=== PATIENT | female | born 1970 | race Caucasian/White ===

== ENCOUNTER 2022-12-20 10:31 | Emergency (ER) | payer BC ==
[~2022-12-20] VITALS: Ht 170.2 cm; Wt 59.0 kg
--- NOTE | 2022-12-20 10:35 | NUR ---
RECEIVED PT 52 YRS FEMALE WALKING IN FROM HOME C/O RT FLANK PAIN FOR SINCE 8 AM TODAY AWAKE AND ALERT PAIN 03/05
--- NOTE | 2022-12-20 10:40 | NUR ---
UA SET TO LAB
--- NOTE | 2022-12-20 10:45 | NUR ---
BLOOD DROW BY LAB TACH
--- NOTE | 2022-12-20 10:50 | NUR ---
INSERTED ANGO CATHETER G 20 ON LT AC PATENT WILL
[2022-12-20] MEDS ORDERED: ONDANSETRON HCL/PF 4 MG/2 ML VIAL ONE (10:55)
[2022-12-20] MEDS ORDERED: KETOROLAC TROMETHAMINE INJ 30 MG/ML VIAL ONE (10:56)
[2022-12-20] MEDS ORDERED: MORPHINE SULFATE INJ 4 MG/ML DISP.SYRIN ONE (10:56)
[2022-12-20] MEDS ORDERED: KETOROLAC TROMETHAMINE INJ 30 MG/ML VIAL IV ONE (11:00)
[2022-12-20] MEDS ORDERED: MORPHINE SULFATE INJ 2 MG/ML DISP.SYRIN IV ONE (11:00)
[2022-12-20] MEDS ORDERED: ONDANSETRON HCL/PF 4 MG/2 ML VIAL IVP ONE (11:00)
[2022-12-20] MEDS ORDERED: IV NS 0.9% 1,000 ML BAG IV ONE (11:00)
[2022-12-20 11:02] LABS: BILIRUBIN,URINE NEGATIVE (NEGATIVE); COLOR,URINE YELLOW (YELLOW); LEUKOCYTE ESTERASE ,URINE NEGATIVE (NEGATIVE); NITRITE, URINE NEGATIVE (NEGATIVE); PH,URINE 8.5 (5.0-8.0); PROTEIN,URINE NEGATIVE (NEGATIVE); UGLUCOSE NEGATIVE (NEGATIVE); UROBILINOGEN,URINE 0.2 EU/dL (0.2)
[2022-12-20 11:26] LABS: BASOPHILS % (AUTO) 0.6 % (0.0-2.0); EOSINOPHILS % (AUTO) 0.5 % (0.0-6.0); HEMATOCRIT 38 % (33-45); HEMOGLOBIN 12.6 g/dL (11.5-14.8); LYMPHOCYTES # (AUTO) 1.3 K/uL (0.8-4.8); MEAN CORPUSCULAR HGB CONC 34 g/dl (31.0-36.0); MEAN CORPUSCULAR VOLUME 86 fL (82-100); MONOCYTES # (AUTO) 0.4 K/uL (0.1-1.30); MONOCYTES % (AUTO) 5.5 % (2.0-12.0); NEUTROPHILS # (AUTO) 5.9 K/uL (1.8-8.9); NEUTROPHILS % (AUTO) 76.4 % (43.0-81.0); PLATELET COUNT (AUTO) 175 K/uL (150-450); RED BLOOD CELL COUNT(AUTO) 4.35 MIL/uL (4.0-5.2); WHITE BLOOD COUNT (AUTO) 7.7 K/uL (4.3-11.0)
[2022-12-20 11:28] LABS: CALCIUM, SERUM 9.7 mg/dL (8.5-10.1); CREATININE 0.6 mg/dL (0.6-1.3); POTASSIUM 3.9 mmol/L (3.5-5.1)
[2022-12-20 11:33] LABS: BILIRUBIN,DIRECT 0.2 mg/dL (0.0-0.2); BILIRUBIN,TOTAL 0.7 mg/dL (0.2-1.0); TOTAL PROTEIN, SERUM 6.9 g/dL (6.4-8.2)
[2022-12-20 11:36] LABS: BACTERIA,URINE Rare /HPF (None Seen); RBC,URINE NONE SEEN /HPF (0-2); SQUAMOUS EPITHELIAL CELL,UR Rare /HPF (None Seen); URINE AMORPHOUS PHOSPHATES Moderate /HPF (None Seen); WBC,URINE 0-2 /HPF (0-3)
--- NOTE | 2022-12-20 12:25 | NUR ---
NO PAIN AT THIS TIME
--- NOTE | 2022-12-20 12:57 | NUR ---
ABDOMIN AND VAGNALE US AT BED SIDE
--- NOTE | 2022-12-20 13:00 | NUR ---
DR. GUILLORY AT BED SIDE SPOOKING WITH PT ABOUT PLAAN OF CARE
--- NOTE | 2022-12-20 13:43 | NUR ---
Patient discharged to home in stable condition. Written and verbal after care instructions given. Patient verbalizes understanding of instruction.
[2022-12-20 13:49] VITALS: BP 118/73; TEMP 98.4; O2SAT 98
== END 2022-12-20 14:26 | disposition home or self-care (01) ==
LOC: ER 10:39
DX: R10.31 Right lower quadrant pain (principal)
CPT/HCPCS: 99285; 74176; 96374; 76856; 96375; 96361; 85025; 80048; 83690; 80076; 81001; 36415; J2270; J1885; J2405; J7030